=== PATIENT | male | born 1975 | race African-American/Black ===

== ENCOUNTER 2018-05-13 23:10 | Emergency (ER) | payer OTHER ==
[~2018-05-13] VITALS: Ht 190.5 cm; Wt 120.2 kg
[2018-05-13 23:18] VITALS: BP 166/90
[2018-05-13] MEDS ORDERED: TYLENOL EXTRA500 MG PO (23:39)
== END 2018-05-14 00:10 | disposition home or self-care (01) ==
LOC: ER 23:10
DX: S61.411A Laceration without foreign body of right hand, initial encounter (principal); W25.XXXA Contact with sharp glass, initial encounter; Y93.89 Activity, other specified; Y92.89 Other specified places as the place of occurrence of the external cause; Y99.8 Other external cause status